=== PATIENT | female | born 1990 | race African-American/Black ===

== ENCOUNTER 2022-12-30 22:49 | Emergency (ER) | payer OTHER ==
[~2022-12-30] VITALS: Ht 175.3 cm; Wt 109.1 kg
[2022-12-31] MEDS ORDERED: IBUPROFEN 800 MG TAB PO ONE (00:45)
[2022-12-31] MEDS ORDERED: IBUP800T26 PO (02:04)
[2022-12-31 02:11] VITALS: BP 112/60
== END 2022-12-31 03:47 | disposition home or self-care (01) ==
LOC: ER 22:49
DX: S16.1XXA Strain of muscle, fascia and tendon at neck level, initial encounter (principal); M25.512 Pain in left shoulder; M54.59 Other low back pain; E11.9 Type 2 diabetes mellitus without complications; V89.2XXA Person injured in unspecified motor-vehicle accident, traffic, initial encounter; Y93.89 Activity, other specified; Y92.89 Other specified places as the place of occurrence of the external cause; Y99.8 Other external cause status
CPT/HCPCS: 72040; 72100; 73030; 73080